=== PATIENT | female | born 1975 | race Caucasian/White ===

== ENCOUNTER 2018-12-24 17:29 | Inpatient (IN) ==
[2018-12-24 20:39] LABS: ABG Base Excess -2 mEq/L (-2 to 3); ABG HCO3 24 mEq/L (21-27); ABG Oxygen Saturation 93 % (95-98); ABG PCO2 45 mmHg (35-45); ABG PH 7.34 pH Units (7.32-7.45); ABG PO2 70 mmHg (85-104); ABG TCO2 26 mEq/L (20-26)
[2018-12-24] MEDS ORDERED: Ipratropium/Albuterol Neb 3 ML IH PRN (21:00)
[2018-12-24] MEDS: Famotidine 20 MG TABLET PO SCH (21:27)
[2018-12-24] MEDS: Gabapentin 400 MG CAPSULE PO SCH (21:27)
[2018-12-24 21:56] LABS: Hematocrit 28.5 % (35.3-44.9); Hemoglobin 8.9 g/dL (11.5-15.4); Immature Granulocytes % 0.6 % (0-4); Lymphocytes # 0.6 K/mcL (0.6-4.6); Lymphocytes % 4.1 %; Mean Corpuscular HGB Conc 31.2 g/dL (31.6-35.5); Mean Corpuscular Hemoglobin 27.1 pg (28.0-33.3); Mean Corpuscular Volume 86.6 fL (83.0-100.0); Mean Platelet Volume 10.8 fL (9.4-12.4); Monocytes # 0.1 K/mcL (0.0-1.3); Monocytes % 0.9 %; Neutrophils # 13.3 K/mcL (1.6-8.9); Platelet Count 233 K/mcL (140-400); Red Blood Count 3.29 M/mcL (3.82-4.97); Red Cell Distribution Width 16.9 % (11.5-14.5); Segmented Neutrophils % 94.4 %; White Blood Count 14.1 K/mcL (4.3-11.1)
[2018-12-24 22:02] LABS: INR 1.1; Prothrombin Time 12.5 Seconds (9.4-12.1)
[2018-12-24 22:05] LABS: Activated Partial Thrombo Time 28.3 Seconds (26.0-36.0)
[2018-12-24 22:17] LABS: Alanine Aminotransferase 16 Units/L (7-52); Albumin 3.2 g/dL (3.5-5.7); Alkaline Phosphatase 124 Units/L (34-104); Aspartate Amino Transferase 36 Units/L (13-39); BUN/Creatinine Ratio 25 (6-26); Bilirubin,Direct 0.1 mg/dL (0.0-0.2); Bilirubin,Indirect 0.1 mg/dL (0.0-1.0); Bilirubin,Total 0.2 mg/dL (0.3-1.0); Blood Urea Nitrogen 20 mg/dL (6-20); Calcium 8.1 mg/dL (8.6-10.3); Carbon Dioxide 24 mEq/L (23-29); Chloride 106 mEq/L (98-107); Globulin 3.1 g/dL (2.4-3.5); Glucose 190 mg/dL (70-105); Magnesium 1.6 mg/dL (1.6-2.6); Osmolality,Calculated 292 (280-300); Phosphorous 2.2 mg/dL (2.7-4.5); Potassium 4.1 mEq/L (3.5-5.1); Sodium 137 mEq/L (136-145); Total Protein 6.3 g/dL (6.4-8.9); eGFR For African Americans > 60 (> 60); eGFR For Non-African Americans > 60 (> 60)
[2018-12-24] MEDS: Budesonide/Formoterol 80/4.5 1 PUFF INH IH SCH (22:24)
[2018-12-24] MEDS: *HR* Heparin 5,000 UNIT/ML VIAL SQ SCH (23:26)
[2018-12-25] MEDS: cefTRIAXone 1,000 MG in Water for inj. (sterile) 10 ML IVP SCH (00:02)
[2018-12-25] MEDS: Azithromycin 500 MG in 0.9 % Sodium Chloride 250 ML IVPB SCH (00:02)
[2018-12-25] MEDS: MethylPREDNISolone 40 MG/ML VIAL IVP SCH ×2 (05:41→16:54)
[2018-12-25] MEDS ORDERED: Nystatin POWDER 30 GM BOTTLE TP PRN (06:33)
[2018-12-25] MEDS: Budesonide/Formoterol 80/4.5 1 PUFF INH IH SCH ×2 (07:48→20:09)
[2018-12-25] MEDS ORDERED: Iron Sucrose Complex 200 MG in 0.9 % Sodium Chloride 100 ML IVPB ONE (08:00)
[2018-12-25 08:47] LABS: Amphetamine Screen,Urine Negative ng/mL (Cutoff=1000); Barbiturate Screen,Urine Negative ng/mL (Cutoff=200); Benzodiazepines Screen,Urine Positive ng/mL (Cutoff=200); Cannabinoid Screen,Urine Negative ng/mL (Cutoff = 50); Cocaine Screen,Urine Negative ng/mL (Cutoff= 300); Opiate Screen,Urine Positive ng/mL (Cutoff=300); Phencyclidine Screen,Urine Negative ng/mL (Cutoff=25)
[2018-12-25] MEDS: Furosemide 40 MG/4 ML VIAL IVP SCH (08:58)
[2018-12-25] MEDS: *HR* Heparin 5,000 UNIT/ML VIAL SQ SCH ×2 (08:58→09:22)
[2018-12-25] MEDS: FLUoxetine 20 MG CAPSULE PO SCH (08:58)
[2018-12-25] MEDS: Gabapentin 400 MG CAPSULE PO SCH ×3 (08:58→22:01)
[2018-12-25] MEDS: Cyanocobalamin (B-12) 1,000 MCG TABLET PO SCH (08:58)
[2018-12-25] MEDS: Ibuprofen 800 MG TABLET PO PRN ×2 (10:56→22:05)
[2018-12-25] MEDS ORDERED: D5% in Water 1,000 ML IVC PRN (11:38)
[2018-12-25] MEDS ORDERED: *HR* Dextrose 50 % in Water (Syg) 50 ML SYRINGE IVP PRN (11:38)
[2018-12-25] MEDS ORDERED: Dextrose Gel 15 GM/37.5 ML TUBE PO PRN ×2 (11:38)
[2018-12-25] MEDS: Insulin LISPRO 300 UNITS/3 ML VIAL SQ SCH (16:54)
[2018-12-25] MEDS: Insulin DETEMIR 100 UNIT/ML X5UNITS SQ SCH (22:00)
[2018-12-25] MEDS: Famotidine 20 MG TABLET PO SCH (22:01)
[2018-12-26] MEDS: Azithromycin 500 MG in 0.9 % Sodium Chloride 250 ML IVPB SCH ×2 (00:13→23:50)
[2018-12-26] MEDS: cefTRIAXone 1,000 MG in Water for inj. (sterile) 10 ML IVP SCH ×2 (00:13→23:48)
[2018-12-26] MEDS: *HR* Heparin 5,000 UNIT/ML VIAL SQ SCH ×4 (00:15→23:48)
[2018-12-26 01:33] LABS: Basophils % 0.1 %; Hematocrit 29.1 % (35.3-44.9); Hemoglobin 9.4 g/dL (11.5-15.4); Immature Granulocytes % 0.8 % (0-4); Lymphocytes # 0.6 K/mcL (0.6-4.6); Lymphocytes % 4.8 %; Mean Corpuscular HGB Conc 32.3 g/dL (31.6-35.5); Mean Corpuscular Hemoglobin 27.4 pg (28.0-33.3); Mean Corpuscular Volume 84.8 fL (83.0-100.0); Mean Platelet Volume 10.5 fL (9.4-12.4); Monocytes # 0.3 K/mcL (0.0-1.3); Monocytes % 2.1 %; Neutrophils # 12.3 K/mcL (1.6-8.9); Platelet Count 253 K/mcL (140-400); Red Blood Count 3.43 M/mcL (3.82-4.97); Red Cell Distribution Width 17.2 % (11.5-14.5); Segmented Neutrophils % 92.2 %; White Blood Count 13.3 K/mcL (4.3-11.1)
[2018-12-26 01:55] LABS: BUN/Creatinine Ratio 31 (6-26); Blood Urea Nitrogen 26 mg/dL (6-20); Calcium 8.3 mg/dL (8.6-10.3); Carbon Dioxide 28 mEq/L (23-29); Chloride 105 mEq/L (98-107); Glucose 184 mg/dL (70-105); Magnesium 1.9 mg/dL (1.6-2.6); Osmolality,Calculated 300 (280-300); Phosphorous 3.1 mg/dL (2.7-4.5); Potassium 4.3 mEq/L (3.5-5.1); Sodium 140 mEq/L (136-145); eGFR For African Americans > 60 (> 60); eGFR For Non-African Americans > 60 (> 60)
[2018-12-26] MEDS: MethylPREDNISolone 40 MG/ML VIAL IVP SCH ×2 (05:13→17:34)
[2018-12-26] MEDS: Insulin LISPRO 300 UNITS/3 ML VIAL SQ SCH ×3 (09:14→17:34)
[2018-12-26] MEDS: Gabapentin 400 MG CAPSULE PO SCH ×3 (09:15→20:39)
[2018-12-26] MEDS: Cyanocobalamin (B-12) 1,000 MCG TABLET PO SCH (09:15)
[2018-12-26] MEDS: FLUoxetine 20 MG CAPSULE PO SCH (09:15)
[2018-12-26] MEDS: Furosemide 40 MG/4 ML VIAL IVP SCH (09:16)
[2018-12-26] MEDS: Ibuprofen 800 MG TABLET PO PRN ×2 (09:18→17:34)
[2018-12-26] MEDS: Budesonide/Formoterol 80/4.5 1 PUFF INH IH SCH ×3 (10:17→20:48)
[2018-12-26] MEDS: Insulin DETEMIR 100 UNIT/ML X5UNITS SQ SCH (20:38)
[2018-12-26] MEDS: Famotidine 20 MG TABLET PO SCH (20:39)
[2018-12-27] MEDS: MethylPREDNISolone 40 MG/ML VIAL IVP SCH ×2 (05:16→17:45)
[2018-12-27] MEDS: Ibuprofen 800 MG TABLET PO PRN ×3 (05:17→23:38)
[2018-12-27] MEDS: Insulin LISPRO 300 UNITS/3 ML VIAL SQ SCH ×3 (07:13→16:59)
[2018-12-27 07:43] LABS: Basophils % 0.1 %; Eosinophils % 0.2 %; Hemoglobin 9.8 g/dL (11.5-15.4); Immature Granulocytes % 0.6 % (0-4); Lymphocytes # 1.1 K/mcL (0.6-4.6); Lymphocytes % 8.6 %; Mean Corpuscular HGB Conc 30.6 g/dL (31.6-35.5); Mean Corpuscular Hemoglobin 26.7 pg (28.0-33.3); Mean Corpuscular Volume 87.2 fL (83.0-100.0); Mean Platelet Volume 10.5 fL (9.4-12.4); Monocytes # 0.5 K/mcL (0.0-1.3); Monocytes % 3.8 %; Neutrophils # 10.7 K/mcL (1.6-8.9); Platelet Count 297 K/mcL (140-400); Red Blood Count 3.67 M/mcL (3.82-4.97); Red Cell Distribution Width 17.2 % (11.5-14.5); Segmented Neutrophils % 86.7 %; White Blood Count 12.3 K/mcL (4.3-11.1)
[2018-12-27] MEDS ORDERED: Lidocaine HCL 4 ML Topical Solution (Laryng-O-Jet Kit Sterile Pak) TP ONE (07:48)
[2018-12-27] MEDS ORDERED: Lidocaine -MPF 2% 2 ML VIAL ONE (07:48)
[2018-12-27] MEDS ORDERED: *HR* Succinylcholine 200 MG/10 ML VIAL IVP ONE (07:48)
[2018-12-27] MEDS ORDERED: *HR* Propofol 200 MG/20 ML VIAL IVP ONE (07:48)
[2018-12-27] MEDS ORDERED: Ondansetron 4 MG/2 ML VIAL ONE (07:48)
[2018-12-27] MEDS ORDERED: Dexamethasone 4 MG/ML VIAL ONE (07:48)
[2018-12-27] MEDS: *HR* Heparin 5,000 UNIT/ML VIAL SQ SCH ×3 (07:57→23:38)
[2018-12-27 08:02] LABS: BUN/Creatinine Ratio 50 (6-26); Blood Urea Nitrogen 33 mg/dL (6-20); Calcium 8.6 mg/dL (8.6-10.3); Carbon Dioxide 30 mEq/L (23-29); Chloride 103 mEq/L (98-107); Glucose 87 mg/dL (70-105); Osmolality,Calculated 299 (280-300); Phosphorous 2.7 mg/dL (2.7-4.5); Potassium 3.8 mEq/L (3.5-5.1); Sodium 141 mEq/L (136-145); eGFR For African Americans > 60 (> 60); eGFR For Non-African Americans > 60 (> 60)
[2018-12-27] MEDS: Cyanocobalamin (B-12) 1,000 MCG TABLET PO SCH (08:09)
[2018-12-27] MEDS: Gabapentin 400 MG CAPSULE PO SCH ×3 (08:09→20:39)
[2018-12-27] MEDS: FLUoxetine 20 MG CAPSULE PO SCH (08:09)
[2018-12-27] MEDS: Budesonide/Formoterol 80/4.5 1 PUFF INH IH SCH ×2 (08:27→21:01)
[2018-12-27] MEDS ORDERED: *HR* FentaNYL (PF) 100 MCG/2 ML VIAL ONE ×2 (10:41→10:52)
[2018-12-27] MEDS ORDERED: *HR* Midazolam HCl 2 MG/2 ML VIAL ONE (10:41)
[2018-12-27] MEDS ORDERED: Propofol 500 MG/50 ML INFUS..BTL ONE (11:23)
[2018-12-27] MEDS ORDERED: *HR* EPINEPHrine 1 MG/10 ML SYRINGE INTRATRACH PRN (11:28)
[2018-12-27] MEDS: Furosemide 20 MG TABLET PO SCH (12:29)
[2018-12-27] MEDS: Nicotine 21 MG PATCH.TD24 TD SCH (14:28)
[2018-12-27 16:02] LABS: Source of Body Fluid LEFT UPPER LOBE LUNG
[2018-12-27 17:56] LABS: Appearance of Body Fluid Cloudy (Clear); Volume of Body Fluid 23 mL
[2018-12-27] MEDS: Famotidine 20 MG TABLET PO SCH (20:39)
[2018-12-27] MEDS: Insulin DETEMIR 100 UNIT/ML X5UNITS SQ SCH (20:39)
[2018-12-27] MEDS: cefTRIAXone 1,000 MG in Water for inj. (sterile) 10 ML IVP SCH (23:38)
[2018-12-27] MEDS: Azithromycin 500 MG in 0.9 % Sodium Chloride 250 ML IVPB SCH (23:38)
[2018-12-28 05:13] LABS: Basophils % 0.1 %; Hematocrit 30.6 % (35.3-44.9); Hemoglobin 9.7 g/dL (11.5-15.4); Immature Granulocytes % 0.6 % (0-4); Lymphocytes # 1.4 K/mcL (0.6-4.6); Mean Corpuscular HGB Conc 31.7 g/dL (31.6-35.5); Mean Corpuscular Volume 85.2 fL (83.0-100.0); Mean Platelet Volume 10.7 fL (9.4-12.4); Monocytes # 0.7 K/mcL (0.0-1.3); Monocytes % 6.5 %; Neutrophils # 8.6 K/mcL (1.6-8.9); Platelet Count 309 K/mcL (140-400); Red Blood Count 3.59 M/mcL (3.82-4.97); Red Cell Distribution Width 17.1 % (11.5-14.5); Segmented Neutrophils % 79.8 %; White Blood Count 10.8 K/mcL (4.3-11.1)
[2018-12-28] MEDS: MethylPREDNISolone 40 MG/ML VIAL IVP SCH (05:23)
[2018-12-28 05:33] LABS: BUN/Creatinine Ratio 48 (6-26); Blood Urea Nitrogen 31 mg/dL (6-20); Calcium 8.2 mg/dL (8.6-10.3); Carbon Dioxide 31 mEq/L (23-29); Chloride 103 mEq/L (98-107); Glucose 98 mg/dL (70-105); Magnesium 1.8 mg/dL (1.6-2.6); Osmolality,Calculated 297 (280-300); Potassium 3.7 mEq/L (3.5-5.1); Sodium 140 mEq/L (136-145); eGFR For African Americans > 60 (> 60); eGFR For Non-African Americans > 60 (> 60)
[2018-12-28] MEDS: Insulin LISPRO 300 UNITS/3 ML VIAL SQ SCH ×3 (07:30→16:47)
[2018-12-28] MEDS: Budesonide/Formoterol 80/4.5 1 PUFF INH IH SCH ×2 (07:53→20:03)
[2018-12-28 08:51] LABS: Serine Protease-3 Antibody 5 AU/mL (0-19)
[2018-12-28] MEDS: Gabapentin 400 MG CAPSULE PO SCH ×3 (09:05→19:30)
[2018-12-28] MEDS: Furosemide 20 MG TABLET PO SCH (09:05)
[2018-12-28] MEDS: predniSONE 20 MG TABLET PO SCH (09:05)
[2018-12-28] MEDS: FLUoxetine 20 MG CAPSULE PO SCH (09:05)
[2018-12-28] MEDS: Cyanocobalamin (B-12) 1,000 MCG TABLET PO SCH (09:06)
[2018-12-28] MEDS: Ibuprofen 800 MG TABLET PO PRN ×2 (09:06→19:30)
[2018-12-28] MEDS: Nicotine 21 MG PATCH.TD24 TD SCH (09:09)
[2018-12-28] MEDS: *HR* Heparin 5,000 UNIT/ML VIAL SQ SCH ×2 (09:09→16:47)
[2018-12-28] MEDS ORDERED: *HR* Labetalol 20 MG/4 ML SYRINGE IVP ONE (15:32)
[2018-12-28] MEDS: amLODIPine 5 MG TABLET PO SCH (15:43)
[2018-12-28] MEDS: Famotidine 20 MG TABLET PO SCH (19:30)
[2018-12-28] MEDS: Insulin DETEMIR 100 UNIT/ML X5UNITS SQ SCH (19:31)
[2018-12-29] MEDS: cefTRIAXone 1,000 MG in Water for inj. (sterile) 10 ML IVP SCH (00:03)
[2018-12-29] MEDS: Azithromycin 500 MG in 0.9 % Sodium Chloride 250 ML IVPB SCH (00:04)
[2018-12-29] MEDS: *HR* Heparin 5,000 UNIT/ML VIAL SQ SCH ×2 (00:04→08:54)
[2018-12-29 07:12] VITALS: BP 144/97
[2018-12-29] MEDS: Budesonide/Formoterol 80/4.5 1 PUFF INH IH SCH (07:31)
[2018-12-29] MEDS: Furosemide 40 MG/4 ML VIAL IVP SCH (07:46)
[2018-12-29] MEDS: Insulin LISPRO 300 UNITS/3 ML VIAL SQ SCH (08:53)
[2018-12-29] MEDS: FLUoxetine 20 MG CAPSULE PO SCH (08:55)
[2018-12-29] MEDS: Furosemide 20 MG TABLET PO SCH (08:55)
[2018-12-29] MEDS: Nicotine 21 MG PATCH.TD24 TD SCH (08:55)
[2018-12-29] MEDS: Cyanocobalamin (B-12) 1,000 MCG TABLET PO SCH (08:55)
[2018-12-29] MEDS: amLODIPine 5 MG TABLET PO SCH (08:55)
[2018-12-29] MEDS: predniSONE 20 MG TABLET PO SCH (08:55)
[2018-12-29] MEDS: Gabapentin 400 MG CAPSULE PO SCH (08:55)
[2018-12-29] MEDS: Ibuprofen 800 MG TABLET PO PRN (08:58)
[2018-12-29 10:17] LABS: ANA IgG by ELISA NONE DETECTED (None Detected)
== END 2018-12-29 11:16 | disposition home or self-care (01) | DRG 166 ==
LOC: 2NNU → SUATTDRO 20:56 → 2NENU 12-26 21:32
PROVIDERS: ADMIT Student in an Organized Health Care Education/Training Program; ATTEND Internal Medicine

== ENCOUNTER 2019-04-20 12:03 | Inpatient (IN) ==
[2019-04-20] MEDS ORDERED: Naloxone 0.4 MG/ML INJ IVP PRN (13:59)
[2019-04-20] MEDS ORDERED: Artificial Tears SOLN 15 ML BOTTLE BOTH EYES PRN (14:04)
[2019-04-20] MEDS ORDERED: *HR* Dextrose 50 % in Water (Syg) 50 ML SYRINGE IVP PRN (14:14)
[2019-04-20] MEDS ORDERED: Dextrose Gel 15 GM/37.5 ML TUBE PO PRN ×2 (14:14)
[2019-04-20] MEDS ORDERED: D5% in Water 1,000 ML IVC PRN (14:14)
[2019-04-20] MEDS: Pantoprazole 40 MG VIAL IVP SCH (14:47)
[2019-04-20] MEDS: Artificial Tears SOLN 15 ML BOTTLE BOTH EYES SCH ×2 (14:47→20:46)
[2019-04-20 14:55] LABS: ABG Base Excess -4 mEq/L (-2 to 3); ABG HCO3 23 mEq/L (21-27); ABG Oxygen Saturation 98 % (95-98); ABG PCO2 54 mmHg (35-45); ABG PH 7.24 pH Units (7.32-7.45); ABG PO2 114 mmHg (85-104); ABG TCO2 25 mEq/L (20-26); Blood Gas Modality AF; Blood Gas VT 400 cc
[2019-04-20] MEDS: Azithromycin 500 MG in 0.9 % Sodium Chloride 250 ML IVPB SCH (15:10)
[2019-04-20] MEDS: MethylPREDNISolone 40 MG/ML VIAL IVP SCH ×2 (15:10→16:41)
[2019-04-20] MEDS: Furosemide 40 MG/4 ML VIAL IVP SCH (15:10)
[2019-04-20] MEDS: Ipratropium/Albuterol Neb 3 ML IH SCH ×3 (15:24→23:09)
[2019-04-20 16:03] LABS: Bilirubin,Urine Negative (Negative); Blood,Urine Negative (Negative); Clarity,Urine Clear (Clear); Color,Urine Yellow (Yellow); Glucose,Urine (UA) Normal (Normal); Ketones,Urine Negative (Negative); Leukocyte Esterase,Urine Negative (Negative); Nitrite,Urine Negative (Negative); PH,Urine 5.5 pH Units (5.0-8.0); Protein,Urine Trace mg/dL (Neg-Trace); Specific Gravity,Urine > 1.030 (1.010-1.025); Urobilinogen,Urine Normal (Normal)
[2019-04-20] MEDS: Piperacillin/Tazobactam 3.375 GM in 0.9 % Sodium Chloride Mini Bag 100 ML IVPB SCH (16:11)
[2019-04-20] MEDS: Insulin LISPRO 300 UNITS/3 ML VIAL SQ SCH (17:07)
[2019-04-20 17:28] LABS: Estimated Average Glucose 131 mg/dl
[2019-04-20] MEDS: FentaNYL (PF) 1,000 MCG in 0.9 % Sodium Chloride 80 ML IVC SCH (17:49)
[2019-04-20] MEDS: methylPREDNISolone 125 MG/2 ML VIAL IVP SCH (17:50)
[2019-04-20 17:56] LABS: Adenovirus Not Detected (Not Detect); Bordetella Pertussis Not Detected (Not Detect); Chlamydophila pneumoniae Not Detected (Not Detect); Coronavirus 229E Not Detected (Not Detect); Coronavirus HKU1 Not Detected (Not Detect); Coronavirus NL63 Not Detected (Not Detect); Coronavirus OC43 Not Detected (Not Detect); Human Metapneumovirus Not Detected (Not Detect); Human Rhinovirus/Enterovirus Not Detected (Not Detect); Influenza A Subtype 2009 H1 Not Detected (Not Detect); Influenza B Not Detected (Not Detect); Mycoplasma pneumoniae Not Detected (Not Detect); Parainfluenza Virus 1 Not Detected (Not Detect); Parainfluenza Virus 2 Not Detected (Not Detect); Parainfluenza Virus 3 Not Detected (Not Detect); Parainfluenza Virus 4 Not Detected (Not Detect); Respiratory Syncytial Virus Not Detected (Not Detect)
[2019-04-20] MEDS ORDERED: Perflutren Lipid Microsphere 1.3 ML in 0.9 % Sodium Chloride 8.7 ML IVP ONE (18:49)
[2019-04-20] MEDS: Budesonide/Formoterol 160/4.5 1 PUFF INH IH SCH (20:29)
[2019-04-20] MEDS: Chlorhexidine Rinse 15 ML MOUTHWASH MM SCH (20:45)
[2019-04-20] MEDS: cloNIDine HCL 0.1 MG TABLET PO SCH (20:46)
[2019-04-20] MEDS: *HR* Heparin 5,000 UNIT/ML VIAL SQ SCH (20:47)
[2019-04-21] MEDS: Insulin LISPRO 300 UNITS/3 ML VIAL SQ SCH ×5 (01:20→23:00)
[2019-04-21] MEDS: Artificial Tears SOLN 15 ML BOTTLE BOTH EYES SCH ×7 (01:21→22:57)
[2019-04-21] MEDS: Piperacillin/Tazobactam 3.375 GM in 0.9 % Sodium Chloride Mini Bag 100 ML IVPB SCH ×4 (01:21→22:56)
[2019-04-21] MEDS: methylPREDNISolone 125 MG/2 ML VIAL IVP SCH ×4 (01:21→22:56)
[2019-04-21] MEDS: Ipratropium/Albuterol Neb 3 ML IH SCH ×6 (03:15→23:34)
[2019-04-21 04:30] LABS: ABG Base Excess -3 mEq/L (-2 to 3); ABG HCO3 25 mEq/L (21-27); ABG Oxygen Saturation 96 % (95-98); ABG PCO2 64 mmHg (35-45); ABG PH 7.21 pH Units (7.32-7.45); ABG PO2 105 mmHg (85-104); ABG TCO2 27 mEq/L (20-26); Blood Gas Modality ASSIST CONTROL; Blood Gas VT 400 cc
[2019-04-21 05:08] LABS: Basophils % 0.2 %; Hematocrit 28.2 % (35.3-44.9); Hemoglobin 8.4 g/dL (11.5-15.4); Immature Granulocytes % 0.6 % (0-4); Lymphocytes # 0.7 K/mcL (0.6-4.6); Mean Corpuscular HGB Conc 29.8 g/dL (31.6-35.5); Mean Corpuscular Hemoglobin 24.9 pg (28.0-33.3); Mean Corpuscular Volume 83.4 fL (83.0-100.0); Mean Platelet Volume 11.3 fL (9.4-12.4); Monocytes # 0.5 K/mcL (0.0-1.3); Monocytes % 4.3 %; Neutrophils # 9.7 K/mcL (1.6-8.9); Platelet Count 170 K/mcL (140-400); Red Blood Count 3.38 M/mcL (3.82-4.97); Red Cell Distribution Width 20.9 % (11.5-14.5); Segmented Neutrophils % 88.9 %; White Blood Count 10.9 K/mcL (4.3-11.1)
[2019-04-21 05:35] LABS: BUN/Creatinine Ratio 28 (6-26); Blood Urea Nitrogen 25 mg/dL (6-20); Calcium 8.4 mg/dL (8.6-10.3); Carbon Dioxide 21 mEq/L (23-29); Chloride 111 mEq/L (98-107); Glucose 160 mg/dL (70-105); Osmolality,Calculated 296 (280-300); Sodium 139 mEq/L (136-145); eGFR For African Americans > 60 (> 60); eGFR For Non-African Americans > 60 (> 60)
[2019-04-21] MEDS: *HR* Heparin 5,000 UNIT/ML VIAL SQ SCH ×3 (06:00→22:56)
[2019-04-21] MEDS: FLUoxetine 20 MG CAPSULE PO SCH (06:23)
[2019-04-21 07:04] LABS: ABG Base Excess -2 mEq/L (-2 to 3); ABG HCO3 26 mEq/L (21-27); ABG Oxygen Saturation 99 % (95-98); ABG PCO2 59 mmHg (35-45); ABG PH 7.24 pH Units (7.32-7.45); ABG PO2 148 mmHg (85-104); ABG TCO2 27 mEq/L (20-26); Blood Gas Modality ASSIST CONTROL; Blood Gas VT 450 cc
[2019-04-21] MEDS: Budesonide/Formoterol 160/4.5 1 PUFF INH IH SCH ×2 (07:24→20:07)
[2019-04-21] MEDS: FentaNYL (PF) 1,000 MCG in 0.9 % Sodium Chloride 80 ML IVC SCH (08:07)
[2019-04-21] MEDS: Furosemide 40 MG/4 ML VIAL IVP SCH ×2 (08:08→16:53)
[2019-04-21] MEDS: Pantoprazole 40 MG VIAL IVP SCH (08:10)
[2019-04-21] MEDS: Chlorhexidine Rinse 15 ML MOUTHWASH MM SCH ×2 (08:10→19:43)
[2019-04-21 09:15] LABS: Amphetamine Screen,Urine Negative ng/mL (Cutoff=1000); Barbiturate Screen,Urine Negative ng/mL (Cutoff=200); Benzodiazepines Screen,Urine Positive ng/mL (Cutoff=200); Cannabinoid Screen,Urine Negative ng/mL (Cutoff = 50); Cocaine Screen,Urine Negative ng/mL (Cutoff= 300); Opiate Screen,Urine Negative ng/mL (Cutoff=300); Phencyclidine Screen,Urine Negative ng/mL (Cutoff=25)
[2019-04-21 10:08] LABS: C-Reactive Protein 277 mg/L (Less than 10)
[2019-04-21] MEDS: Azithromycin 500 MG in 0.9 % Sodium Chloride 250 ML IVPB SCH (14:39)
[2019-04-21 15:04] LABS: Appearance of Body Fluid Clear (Clear); Volume of Body Fluid 13 mL
[2019-04-21] MEDS ORDERED: Vancomycin 1,750 MG in 0.9 % Sodium Chloride 250 ML IVPB SCH (17:00)
[2019-04-21] MEDS: cloNIDine HCL 0.1 MG TABLET PO SCH (19:43)
[2019-04-22] MEDS: FentaNYL (PF) 1,000 MCG in 0.9 % Sodium Chloride 80 ML IVC SCH (02:59)
[2019-04-22] MEDS: Artificial Tears SOLN 15 ML BOTTLE BOTH EYES SCH ×4 (03:00→13:57)
[2019-04-22] MEDS: Ipratropium/Albuterol Neb 3 ML IH SCH ×5 (03:06→20:06)
[2019-04-22 04:03] LABS: Basophils % 0.1 %; Eosinophils % 0.1 %; Hematocrit 27.9 % (35.3-44.9); Hemoglobin 8.3 g/dL (11.5-15.4); Immature Granulocytes % 1.4 % (0-4); Lymphocytes # 0.7 K/mcL (0.6-4.6); Lymphocytes % 6.5 %; Mean Corpuscular HGB Conc 29.7 g/dL (31.6-35.5); Mean Corpuscular Hemoglobin 24.4 pg (28.0-33.3); Mean Corpuscular Volume 82.1 fL (83.0-100.0); Mean Platelet Volume 11.6 fL (9.4-12.4); Monocytes # 0.5 K/mcL (0.0-1.3); Monocytes % 4.7 %; Neutrophils # 9.8 K/mcL (1.6-8.9); Platelet Count 195 K/mcL (140-400); Red Cell Distribution Width 21.2 % (11.5-14.5); Segmented Neutrophils % 87.2 %; White Blood Count 11.2 K/mcL (4.3-11.1)
[2019-04-22 04:16] LABS: BUN/Creatinine Ratio 36 (6-26); Blood Urea Nitrogen 34 mg/dL (6-20); Calcium 8.4 mg/dL (8.6-10.3); Carbon Dioxide 24 mEq/L (23-29); Chloride 110 mEq/L (98-107); Glucose 149 mg/dL (70-105); Magnesium 1.9 mg/dL (1.6-2.6); Osmolality,Calculated 300 (280-300); Potassium 3.4 mEq/L (3.5-5.1); Sodium 140 mEq/L (136-145); eGFR For African Americans > 60 (> 60); eGFR For Non-African Americans > 60 (> 60)
[2019-04-22] MEDS: *HR* Heparin 5,000 UNIT/ML VIAL SQ SCH ×3 (04:53→21:15)
[2019-04-22] MEDS: Insulin LISPRO 300 UNITS/3 ML VIAL SQ SCH ×3 (04:58→21:14)
[2019-04-22 05:05] LABS: ABG Base Excess 0 mEq/L (-2 to 3); ABG HCO3 25 mEq/L (21-27); ABG Oxygen Saturation 99 % (95-98); ABG PCO2 43 mmHg (35-45); ABG PH 7.37 pH Units (7.32-7.45); ABG PO2 120 mmHg (85-104); ABG TCO2 26 mEq/L (20-26); Blood Gas Modality AF; Blood Gas VT 450 cc
[2019-04-22] MEDS: Furosemide 40 MG/4 ML VIAL IVP SCH ×2 (07:40→16:23)
[2019-04-22] MEDS: methylPREDNISolone 125 MG/2 ML VIAL IVP SCH ×2 (07:41→15:01)
[2019-04-22] MEDS: Piperacillin/Tazobactam 3.375 GM in 0.9 % Sodium Chloride Mini Bag 100 ML IVPB SCH ×2 (07:43→15:01)
[2019-04-22] MEDS: FLUoxetine 20 MG CAPSULE PO SCH (07:44)
[2019-04-22] MEDS: Budesonide/Formoterol 160/4.5 1 PUFF INH IH SCH ×2 (07:49→20:06)
[2019-04-22] MEDS: Chlorhexidine Rinse 15 ML MOUTHWASH MM SCH (07:52)
[2019-04-22] MEDS: Pantoprazole 40 MG VIAL IVP SCH (07:52)
[2019-04-22] MEDS ORDERED: FLUoxetine HCl Oral Soln 20 MG/5 ML UDC GTUBE SCH (09:00)
[2019-04-22] MEDS: Azithromycin 500 MG in 0.9 % Sodium Chloride 250 ML IVPB SCH (14:04)
[2019-04-22] MEDS ORDERED: *HR* Dextrose 50 % in Water (Syg) 50 ML SYRINGE IVP PRN (17:50)
[2019-04-22] MEDS ORDERED: Dextrose Gel 15 GM/37.5 ML TUBE PO PRN ×2 (17:50)
[2019-04-22] MEDS ORDERED: D5% in Water 1,000 ML IVC PRN (17:50)
[2019-04-22] MEDS ORDERED: Vancomycin 1 EACH in 0.9 % Sodium Chloride 500 ML IVPB SCH (18:15)
[2019-04-22] MEDS ORDERED: NON-FORMULARY MEDICATION 1 EACH EACH (Metformin Hcl [Metformin Hcl Er] 500 MG) PO SCH (21:00)
[2019-04-22] MEDS ORDERED: cloNIDine HCL 0.1 MG TABLET GTUBE SCH (21:00)
[2019-04-22] MEDS: Gabapentin 400 MG CAPSULE PO SCH (21:14)
[2019-04-22] MEDS: Famotidine 20 MG TABLET PO SCH (21:14)
[2019-04-22] MEDS: cloNIDine HCL 0.1 MG TABLET PO SCH (21:14)
[2019-04-22] MEDS ORDERED: Ondansetron 4 MG/2 ML VIAL IVP PRN (21:21)
[2019-04-23] MEDS: methylPREDNISolone 125 MG/2 ML VIAL IVP SCH ×4 (00:12→23:06)
[2019-04-23] MEDS: Ipratropium/Albuterol Neb 3 ML IH SCH ×7 (00:17→23:22)
[2019-04-23 01:49] LABS: Basophils % 0.3 %; Hematocrit 29.2 % (35.3-44.9); Hemoglobin 8.9 g/dL (11.5-15.4); Immature Granulocytes % 2.3 % (0-4); Lymphocytes # 1.5 K/mcL (0.6-4.6); Lymphocytes % 13.2 %; Mean Corpuscular HGB Conc 30.5 g/dL (31.6-35.5); Mean Corpuscular Hemoglobin 24.1 pg (28.0-33.3); Mean Corpuscular Volume 78.9 fL (83.0-100.0); Mean Platelet Volume 11.1 fL (9.4-12.4); Monocytes # 0.7 K/mcL (0.0-1.3); Monocytes % 6.1 %; Neutrophils # 8.8 K/mcL (1.6-8.9); Platelet Count 249 K/mcL (140-400); Red Cell Distribution Width 21.1 % (11.5-14.5); Segmented Neutrophils % 78.1 %; White Blood Count 11.2 K/mcL (4.3-11.1)
[2019-04-23 02:07] LABS: BUN/Creatinine Ratio 42 (6-26); Blood Urea Nitrogen 36 mg/dL (6-20); Calcium 8.6 mg/dL (8.6-10.3); Carbon Dioxide 25 mEq/L (23-29); Chloride 109 mEq/L (98-107); Glucose 134 mg/dL (70-105); Magnesium 1.8 mg/dL (1.6-2.6); Osmolality,Calculated 310 (280-300); Sodium 145 mEq/L (136-145); eGFR For African Americans > 60 (> 60); eGFR For Non-African Americans > 60 (> 60)
[2019-04-23] MEDS ORDERED: Ondansetron 4 MG/2 ML VIAL IVP PRN (02:24)
[2019-04-23] MEDS: Budesonide/Formoterol 160/4.5 1 PUFF INH IH SCH ×2 (07:25→20:12)
[2019-04-23] MEDS: Insulin LISPRO 300 UNITS/3 ML VIAL SQ SCH ×4 (08:10→20:15)
[2019-04-23] MEDS: Furosemide 40 MG/4 ML VIAL IVP SCH ×2 (08:37→18:19)
[2019-04-23] MEDS: Gabapentin 400 MG CAPSULE PO SCH ×3 (08:44→20:00)
[2019-04-23] MEDS: Acetaminophen 325 MG TABLET PO PRN ×2 (08:44→20:03)
[2019-04-23] MEDS: Azithromycin 250 MG TABLET PO SCH (08:44)
[2019-04-23] MEDS ORDERED: FLUoxetine HCl Oral Soln 20 MG/5 ML UDC PO SCH (09:00)
[2019-04-23] MEDS ORDERED: Azithromycin 250 MG TABLET PO SCH ×2 (09:00)
[2019-04-23] MEDS ORDERED: Ibuprofen 800 MG TABLET PO PRN (11:07)
[2019-04-23] MEDS: *HR* Heparin 5,000 UNIT/ML VIAL SQ SCH ×2 (11:47→23:06)
[2019-04-23 13:40] LABS: ANA IgG by ELISA NONE DETECTED (None Detected); Serine Protease-3 Antibody 1 AU/mL (0-19)
[2019-04-23 14:34] LABS: Influenza A PCR Body Fluid NOT DETECTED; Influenza B PCR Body Fluid NOT DETECTED; RVP Body Fluid Source BAL
[2019-04-23 14:41] LABS: RSV PCR Body Fluid NOT DETECTED
[2019-04-23] MEDS ORDERED: Aminoglycoside Consult 1 EACH MC ONE (15:02)
[2019-04-23] MEDS: cloNIDine HCL 0.1 MG TABLET PO SCH (19:59)
[2019-04-23] MEDS: Famotidine 20 MG TABLET PO SCH (20:00)
[2019-04-24 01:21] LABS: Basophils % 0.2 %; Eosinophils % 0.1 %; Hemoglobin 9.3 g/dL (11.5-15.4); Immature Granulocytes % 4.1 % (0-4); Lymphocytes # 1.6 K/mcL (0.6-4.6); Lymphocytes % 15.7 %; Mean Corpuscular Hemoglobin 24.3 pg (28.0-33.3); Mean Corpuscular Volume 80.9 fL (83.0-100.0); Mean Platelet Volume 10.8 fL (9.4-12.4); Monocytes # 0.7 K/mcL (0.0-1.3); Monocytes % 6.6 %; Neutrophils # 7.6 K/mcL (1.6-8.9); Platelet Count 235 K/mcL (140-400); Red Blood Count 3.83 M/mcL (3.82-4.97); Red Cell Distribution Width 21.1 % (11.5-14.5); Segmented Neutrophils % 73.3 %; White Blood Count 10.4 K/mcL (4.3-11.1)
[2019-04-24 01:41] LABS: BUN/Creatinine Ratio 47 (6-26); Blood Urea Nitrogen 32 mg/dL (6-20); Calcium 8.5 mg/dL (8.6-10.3); Carbon Dioxide 28 mEq/L (23-29); Chloride 105 mEq/L (98-107); Glucose 121 mg/dL (70-105); Magnesium 1.8 mg/dL (1.6-2.6); Osmolality,Calculated 300 (280-300); Potassium 3.7 mEq/L (3.5-5.1); Sodium 141 mEq/L (136-145); eGFR For African Americans > 60 (> 60); eGFR For Non-African Americans > 60 (> 60)
[2019-04-24] MEDS: Ipratropium/Albuterol Neb 3 ML IH SCH ×3 (04:29→11:12)
[2019-04-24] MEDS: Insulin LISPRO 300 UNITS/3 ML VIAL SQ SCH ×2 (07:35→11:48)
[2019-04-24] MEDS: Budesonide/Formoterol 160/4.5 1 PUFF INH IH SCH (07:36)
[2019-04-24] MEDS ORDERED: FLUoxetine 20 MG CAPSULE PO SCH (09:15)
[2019-04-24] MEDS: Azithromycin 250 MG TABLET PO SCH (09:50)
[2019-04-24] MEDS: Gabapentin 400 MG CAPSULE PO SCH (09:50)
[2019-04-24] MEDS: methylPREDNISolone 125 MG/2 ML VIAL IVP SCH (09:51)
[2019-04-24] MEDS: *HR* Heparin 5,000 UNIT/ML VIAL SQ SCH (09:51)
[2019-04-24] MEDS: Furosemide 40 MG/4 ML VIAL IVP SCH (09:51)
[2019-04-24 11:05] VITALS: BP 116/80
[2019-04-25 13:05] LABS: HSV Source BAL
== END 2019-04-24 15:03 | disposition home or self-care (01) | DRG 871 ==
LOC: ICNU 13:45 → 3BNU 04-22 17:50
PROVIDERS: ADMIT Internal Medicine; ATTEND Internal Medicine

== ENCOUNTER 2020-03-25 18:43 | Inpatient (IN) ==
[2020-03-26] MEDS ORDERED: Ondansetron 4 MG/2 ML VIAL IVP PRN (00:53)
[2020-03-26] MEDS ORDERED: Albuterol 2.5 MG/3 ML NEBULIZER IH PRN (00:56)
[2020-03-26] MEDS ORDERED: Perflutren Lipid Microsphere 1.3 ML in 0.9 % Sodium Chloride 8.7 ML IVP PRN (01:31)
[2020-03-26] MEDS ORDERED: Nicotine 21 MG PATCH.TD24 TD PRN (01:32)
[2020-03-26] MEDS: Gabapentin 400 MG CAPSULE PO SCH ×4 (01:35→20:01)
[2020-03-26 01:57] LABS: Hematocrit 40.9 % (35.3-44.9); Hemoglobin 12.9 g/dL (11.5-15.4); Mean Corpuscular HGB Conc 31.5 g/dL (31.6-35.5); Mean Corpuscular Hemoglobin 29.5 pg (28.0-33.3); Mean Corpuscular Volume 93.4 fL (83.0-100.0); Mean Platelet Volume 11.3 fL (9.4-12.4); Platelet Count 203 K/mcL (140-400); Red Blood Count 4.38 M/mcL (3.82-4.97); Red Cell Distribution Width 14.9 % (11.5-14.5); White Blood Count 10.2 K/mcL (4.3-11.1)
[2020-03-26 02:05] LABS: Prothrombin Time 11.8 Seconds (9.4-12.1)
[2020-03-26 02:25] LABS: Troponin I 0.06 ng/mL (< 0.04)
[2020-03-26 02:30] LABS: Alanine Aminotransferase 9 Units/L (7-52); Albumin 3.7 g/dL (3.5-5.7); Albumin/Globulin Ratio 1.2 (1.1-2.2); Alkaline Phosphatase 97 Units/L (34-104); Aspartate Amino Transferase 39 Units/L (13-39); BUN/Creatinine Ratio 26 (6-26); Bilirubin,Total 0.3 mg/dL (0.3-1.0); Blood Urea Nitrogen 27 mg/dL (6-20); Calcium 9.1 mg/dL (8.6-10.3); Carbon Dioxide 26 mEq/L (23-29); Chloride 99 mEq/L (98-107); Globulin 3.2 g/dL (2.4-3.5); Glucose 166 mg/dL (70-105); Magnesium 1.7 mg/dL (1.6-2.6); Osmolality,Calculated 291 (280-300); Potassium 3.9 mEq/L (3.5-5.1); Sodium 136 mEq/L (136-145); Total Protein 6.9 g/dL (6.4-8.9); eGFR For African Americans > 60 (> 60); eGFR For Non-African Americans 58 (> 60)
[2020-03-26] MEDS: Ipratropium/Albuterol Neb 3 ML IH SCH ×7 (03:39→23:34)
[2020-03-26] MEDS: Azithromycin 250 MG TABLET PO SCH (05:46)
[2020-03-26] MEDS: cefTRIAXone 2,000 MG in Water for inj. (sterile) 20 ML IVP SCH (05:46)
[2020-03-26] MEDS: *HR* Enoxaparin 40 MG/0.4 ML SYRINGE SQ SCH (05:47)
[2020-03-26] MEDS: predniSONE 20 MG TABLET PO SCH (07:35)
[2020-03-26] MEDS: Furosemide 40 MG/4 ML VIAL IVP SCH ×2 (07:35→17:41)
[2020-03-26] MEDS: Acetaminophen 325 MG TABLET PO PRN (07:44)
[2020-03-26] MEDS: Ibuprofen 600 MG TABLET PO PRN ×2 (11:49→20:59)
[2020-03-27] MEDS: cefTRIAXone 2,000 MG in Water for inj. (sterile) 20 ML IVP SCH (01:17)
[2020-03-27] MEDS: Ipratropium/Albuterol Neb 3 ML IH SCH ×6 (03:40→23:43)
[2020-03-27] MEDS: *HR* Enoxaparin 40 MG/0.4 ML SYRINGE SQ SCH (05:05)
[2020-03-27] MEDS: Ibuprofen 600 MG TABLET PO PRN ×2 (05:16→16:17)
[2020-03-27] MEDS: Gabapentin 400 MG CAPSULE PO SCH ×3 (07:41→20:43)
[2020-03-27] MEDS: Furosemide 40 MG/4 ML VIAL IVP SCH ×2 (07:41→16:12)
[2020-03-27] MEDS: Azithromycin 250 MG TABLET PO SCH (07:42)
[2020-03-27] MEDS: predniSONE 20 MG TABLET PO SCH (07:42)
[2020-03-27 08:46] LABS: Basophils % 0.5 %; Eosinophils # 0.2 K/mcL (0.0-0.6); Eosinophils % 2.4 %; Hematocrit 38.8 % (35.3-44.9); Hemoglobin 12.5 g/dL (11.5-15.4); Immature Granulocytes % 0.4 % (0-4); Lymphocytes # 1.8 K/mcL (0.6-4.6); Lymphocytes % 22.5 %; Mean Corpuscular HGB Conc 32.2 g/dL (31.6-35.5); Mean Corpuscular Hemoglobin 29.6 pg (28.0-33.3); Mean Corpuscular Volume 91.7 fL (83.0-100.0); Mean Platelet Volume 11.4 fL (9.4-12.4); Monocytes # 0.3 K/mcL (0.0-1.3); Monocytes % 4.3 %; Neutrophils # 5.6 K/mcL (1.6-8.9); Platelet Count 209 K/mcL (140-400); Red Blood Count 4.23 M/mcL (3.82-4.97); Red Cell Distribution Width 14.7 % (11.5-14.5); Segmented Neutrophils % 69.9 %
[2020-03-27 08:57] LABS: BUN/Creatinine Ratio 35 (6-26); Blood Urea Nitrogen 29 mg/dL (6-20); Carbon Dioxide 28 mEq/L (23-29); Chloride 101 mEq/L (98-107); Glucose 86 mg/dL (70-105); Osmolality,Calculated 293 (280-300); Potassium 3.2 mEq/L (3.5-5.1); Sodium 139 mEq/L (136-145); eGFR For African Americans > 60 (> 60); eGFR For Non-African Americans > 60 (> 60)
[2020-03-27 08:58] LABS: Troponin I < 0.03 ng/mL (< 0.04)
[2020-03-27] MEDS: Nicotine 2 MG GUM BC PRN (22:27)
[2020-03-28] MEDS: Nicotine 2 MG GUM BC PRN ×2 (02:29→05:34)
[2020-03-28] MEDS: cefTRIAXone 2,000 MG in Water for inj. (sterile) 20 ML IVP SCH (02:29)
[2020-03-28] MEDS: Ipratropium/Albuterol Neb 3 ML IH SCH ×4 (04:36→15:33)
[2020-03-28] MEDS: Acetaminophen 325 MG TABLET PO PRN (05:34)
[2020-03-28] MEDS: *HR* Enoxaparin 40 MG/0.4 ML SYRINGE SQ SCH (05:34)
[2020-03-28 05:38] LABS: Basophils % 0.6 %; Eosinophils # 0.2 K/mcL (0.0-0.6); Eosinophils % 3.1 %; Hematocrit 41.1 % (35.3-44.9); Hemoglobin 13.2 g/dL (11.5-15.4); Immature Granulocytes % 0.5 % (0-4); Lymphocytes # 1.6 K/mcL (0.6-4.6); Lymphocytes % 25.4 %; Mean Corpuscular HGB Conc 32.1 g/dL (31.6-35.5); Mean Corpuscular Hemoglobin 29.9 pg (28.0-33.3); Mean Platelet Volume 11.2 fL (9.4-12.4); Monocytes # 0.4 K/mcL (0.0-1.3); Monocytes % 6.5 %; Neutrophils # 4.1 K/mcL (1.6-8.9); Platelet Count 204 K/mcL (140-400); Red Blood Count 4.42 M/mcL (3.82-4.97); Red Cell Distribution Width 14.6 % (11.5-14.5); Segmented Neutrophils % 63.9 %; White Blood Count 6.5 K/mcL (4.3-11.1)
[2020-03-28 06:02] LABS: BUN/Creatinine Ratio 39 (6-26); Blood Urea Nitrogen 26 mg/dL (6-20); Carbon Dioxide 31 mEq/L (23-29); Chloride 99 mEq/L (98-107); Glucose 80 mg/dL (70-105); Osmolality,Calculated 290 (280-300); Potassium 3.7 mEq/L (3.5-5.1); Sodium 138 mEq/L (136-145); eGFR For African Americans > 60 (> 60); eGFR For Non-African Americans > 60 (> 60)
[2020-03-28] MEDS: Furosemide 40 MG/4 ML VIAL IVP SCH (08:16)
[2020-03-28] MEDS: predniSONE 20 MG TABLET PO SCH (08:16)
[2020-03-28] MEDS: Gabapentin 400 MG CAPSULE PO SCH ×2 (08:17→14:46)
[2020-03-28] MEDS: Azithromycin 250 MG TABLET PO SCH (08:17)
[2020-03-28] MEDS: Ibuprofen 600 MG TABLET PO PRN (08:20)
[2020-03-28 14:55] VITALS: BP 129/90
== END 2020-03-28 16:22 | disposition home or self-care (01) | DRG 193 ==
LOC: 3BNU
PROVIDERS: ADMIT Internal Medicine; ATTEND Internal Medicine

== ENCOUNTER 2021-05-29 10:02 | Inpatient (IN) ==
[2021-05-29] MEDS ORDERED: Isovue-370 500 ML BOTTLE IVP ONE (10:43)
[2021-05-29 11:31] LABS: VBG HCO3 28 mEq/L (21-27); VBG PCO2 50 mmHg (41-51); VBG PH 7.35 pH Units (7.32-7.42); VBG PO2 53 mmHg (25-50)
[2021-05-29 11:34] LABS: Basophils # 0.1 K/mcL (0.0-0.2); Basophils % 0.5 %; Eosinophils % 0.2 %; Hematocrit 41.3 % (35.3-44.9); Hemoglobin 13.9 g/dL (11.5-15.4); Immature Granulocytes % 1.3 % (0-4); Lymphocytes # 1.1 K/mcL (0.6-4.6); Lymphocytes % 8.2 %; Mean Corpuscular HGB Conc 33.7 g/dL (31.6-35.5); Mean Platelet Volume 9.7 fL (9.4-12.4); Monocytes # 0.4 K/mcL (0.0-1.3); Monocytes % 2.8 %; Neutrophils # 11.4 K/mcL (1.6-8.9); Platelet Count 311 K/mcL (140-400); Red Blood Count 4.64 M/mcL (3.82-4.97); Red Cell Distribution Width 13.3 % (11.5-14.5); White Blood Count 13.1 K/mcL (4.3-11.1)
[2021-05-29 11:56] LABS: Alanine Aminotransferase 10 Units/L (7-52); Albumin/Globulin Ratio 1.1 (1.1-2.2); Alkaline Phosphatase 88 Units/L (34-104); Aspartate Amino Transferase 14 Units/L (13-39); BUN/Creatinine Ratio 58 (6-26); Bilirubin,Total 0.3 mg/dL (0.3-1.0); Blood Urea Nitrogen 33 mg/dL (6-20); Calcium 9.6 mg/dL (8.6-10.3); Carbon Dioxide 27 mEq/L (23-29); Chloride 99 mEq/L (98-107); Globulin 3.8 g/dL (2.4-3.5); Glucose 133 mg/dL (70-105); Osmolality,Calculated 295 (280-300); Potassium 4.6 mEq/L (3.5-5.1); Sodium 138 mEq/L (136-145); Total Protein 7.8 g/dL (6.4-8.9); Troponin I < 0.03 ng/mL (< 0.04); eGFR For African Americans > 60 (> 60); eGFR For Non-African Americans > 60 (> 60)
[2021-05-29 11:58] LABS: Bilirubin,Urine Small (Negative); Blood,Urine Trace (Negative); Clarity,Urine Clear (Clear); Color,Urine Yellow (Yellow); Glucose,Urine (UA) Normal (Normal); Hyaline Casts,Urine Few per lpf (None Seen); Ketones,Urine 20 mg/dL (Negative); Leukocyte Esterase,Urine Negative (Negative); Nitrite,Urine Negative (Negative); Protein,Urine 50 mg/dL (Neg-Trace); Specific Gravity,Urine > 1.030 (1.010-1.025); WBC,Urine 0-3 per hpf (0-3)
[2021-05-29 12:15] LABS: Amphetamine Screen,Urine Negative ng/mL (Cutoff=1000); Barbiturate Screen,Urine Negative ng/mL (Cutoff=200); Benzodiazepines Screen,Urine Negative ng/mL (Cutoff=200); Cannabinoid Screen,Urine Negative ng/mL (Cutoff = 50); Cocaine Screen,Urine Negative ng/mL (Cutoff= 300); Opiate Screen,Urine Negative ng/mL (Cutoff=300); Phencyclidine Screen,Urine Negative ng/mL (Cutoff=25)
[2021-05-29] MEDS ORDERED: 0.9 % Sodium Chloride 1,000 ML IV ONE (12:33)
[2021-05-29] MEDS ORDERED: Azithromycin 500 MG in 0.9 % Sodium Chloride 250 ML IVPB ONE (12:54)
[2021-05-29] MEDS ORDERED: cefTRIAXone 1,000 MG in 0.9 % Sodium Chloride 10 ML IVP ONE (12:54)
[2021-05-29 12:57] LABS: Adenovirus Not Detected (Not Detect); Bordetella Pertussis Not Detected (Not Detect); Chlamydophila pneumoniae Not Detected (Not Detect); Coronavirus 229E Not Detected (Not Detect); Coronavirus HKU1 Not Detected (Not Detect); Coronavirus NL63 Not Detected (Not Detect); Coronavirus OC43 Not Detected (Not Detect); Human Metapneumovirus Not Detected (Not Detect); Human Rhinovirus/Enterovirus Not Detected (Not Detect); Influenza A Subtype 2009 H1 Not Detected (Not Detect); Influenza B Not Detected (Not Detect); Mycoplasma pneumoniae Not Detected (Not Detect); Parainfluenza Virus 1 Not Detected (Not Detect); Parainfluenza Virus 2 Not Detected (Not Detect); Parainfluenza Virus 3 Not Detected (Not Detect); Parainfluenza Virus 4 Not Detected (Not Detect); Respiratory Syncytial Virus Not Detected (Not Detect); SARS-CoV-2 Not Detected (Not Detect)
[2021-05-29] MEDS ORDERED: Naloxone 0.4 MG/ML INJ IVP PRN (14:10)
[2021-05-29] MEDS ORDERED: Acetaminophen 325 MG TABLET PO PRN (14:10)
[2021-05-30 08:08] VITALS: O2SAT 98
[2021-05-30 08:09] LABS: Alanine Aminotransferase 9 Units/L (7-52); Albumin 3.6 g/dL (3.5-5.7); Albumin/Globulin Ratio 1.2 (1.1-2.2); Alkaline Phosphatase 71 Units/L (34-104); Aspartate Amino Transferase 13 Units/L (13-39); BUN/Creatinine Ratio 58 (6-26); Bilirubin,Total 0.3 mg/dL (0.3-1.0); Blood Urea Nitrogen 29 mg/dL (6-20); Calcium 9.5 mg/dL (8.6-10.3); Carbon Dioxide 29 mEq/L (23-29); Chloride 101 mEq/L (98-107); Globulin 3.1 g/dL (2.4-3.5); Glucose 88 mg/dL (70-105); Osmolality,Calculated 295 (280-300); Potassium 3.7 mEq/L (3.5-5.1); Sodium 140 mEq/L (136-145); Total Protein 6.7 g/dL (6.4-8.9); eGFR For African Americans > 60 (> 60); eGFR For Non-African Americans > 60 (> 60)
[2021-05-30 08:10] LABS: Basophils # 0.1 K/mcL (0.0-0.2); Basophils % 0.6 %; Eosinophils # 0.1 K/mcL (0.0-0.6); Hematocrit 42.3 % (35.3-44.9); Hemoglobin 14.2 g/dL (11.5-15.4); Immature Granulocytes % 1.5 % (0-4); Lymphocytes # 1.9 K/mcL (0.6-4.6); Lymphocytes % 17.3 %; Mean Corpuscular HGB Conc 33.6 g/dL (31.6-35.5); Mean Corpuscular Hemoglobin 30.3 pg (28.0-33.3); Mean Corpuscular Volume 90.4 fL (83.0-100.0); Monocytes # 0.8 K/mcL (0.0-1.3); Monocytes % 7.3 %; Platelet Count 306 K/mcL (140-400); Red Blood Count 4.68 M/mcL (3.82-4.97); Red Cell Distribution Width 13.2 % (11.5-14.5); Segmented Neutrophils % 72.3 %; White Blood Count 11.1 K/mcL (4.3-11.1)
[2021-05-30 09:11] LABS: Estimated Average Glucose 123 mg/dl; Hemoglobin A1C 5.9 %
[2021-05-30 11:06] VITALS: BP 130/84; PULSE 85; TEMP 98.1
[2021-05-30] MEDS ORDERED: cefTRIAXone 1,000 MG in 0.9 % Sodium Chloride 10 ML IVP SCH (13:00)
[2021-05-30] MEDS ORDERED: Azithromycin 250 MG TABLET PO SCH (13:00)
== END 2021-05-30 16:04 | disposition home or self-care (01) | DRG 193 ==
LOC: 3ANU 10:02 → EMEROOARM 10:02 → SUATTDRO 14:37 → 3ANU 14:50
PROVIDERS: ADMIT Internal Medicine; ATTEND Student in an Organized Health Care Education/Training Program